=== PATIENT | female | born 1955 | race Caucasian/White ===

== ENCOUNTER 2019-04-20 07:41 | Day surgery (SDC) | payer OTHER, MEDICARE ==
[~2019-04-20 07:41] MED LIST: Glycopyrrolate 0.2 MG/ML SDV ONE; Lactated Ringers 1,000 ML IV SCH; Lidocaine 2% 5 ML SDV ONE; Midazolam 1 MG/ML 2 ML SDV ONE; Neostigmine Methylsulfate 1 MG/ML 5 ML Syringe ONE; Ondansetron 4 MG/2 ML SDV ONE; Propofol 200 MG/20 ML SDV ONE; Sodium Chloride 0.9% 10 ML SDV IV PRN; Sodium Chloride 0.9% 10 ML Syringe FLUSH PRN; Sodium Chloride 0.9% 2.5 ML Syringe FLUSH PRN; ceFAZolin 1 GM in Premix Bag 1 BAG IV ONE; fentaNYL 250 MCG/5 ML SDV ONE
[2019-04-20] MEDS ORDERED: Fluorescein 5 ML Vial ONE (07:42)
[2019-04-20] MEDS ORDERED: Scopolamine 1.5 MG Transdermal Patch TRDERM PRN (08:47)
--- NOTE | 2019-04-20 08:50 | PCM.PREANE ---
Preanesthetic Assessment - Anesthesia/Transfusion/Family Hx Anesthesia History: Prior Anesthesia Without Reaction Family History of Anesthesia Reaction: No Transfusion History: No Prior Transfusion(s) Intubation History: Unknown - Review of Systems General: No Symptoms Pulmonary: No Symptoms Cardiovascular: No Symptoms Gastrointestinal: No Symptoms Neurological: No Symptoms Other: Reports: None - Physical Assessment NPO Status Date: 04/20/19 NPO Status Time: 06:00 O2 Sat by Pulse Oximetry: 98 Respiratory Rate: 16 Vital Signs: Last Vital Signs Temp 36.2 C 04/20/19 07:59 Pulse 85 04/20/19 07:59 Resp 16 04/20/19 07:59 BP 129/57 L 04/20/19 07:59 Pulse Ox 98 04/20/19 07:59 Height: 5 ft 1 in Weight: 68.946 kg ASA Class: 2 Mental Status: Alert & Oriented x3 Airway Class: Mallampati = 2 Dentition: Reports: Normal Dentition Thyro-Mental Finger Breadths: 3 Mouth Opening Finger Breadths: 2 ROM/Head Extension: Full Lungs: Clear to Auscultation, Normal Respiratory Effort Cardiovascular: Regular Rate, Regular Rhythm - Lab Values: Laboratory Last Values WBC 3.85 K/uL (4.0-11.0) L 04/19/19 11:10 RBC 3.90 M/uL (4.30-5.90) L 04/19/19 11:10 Hgb 11.7 g/dL (12.0-16.0) L 04/19/19 11:10 Hct 35.7 % (36.0-46.0) L 04/19/19 11:10 MCV 91.5 fL (80.0-98.0) 04/19/19 11:10 MCH 30.0 pg (27.0-32.0) 04/19/19 11:10 MCHC 32.8 g/dL (31.0-37.0) 04/19/19 11:10 RDW Std Deviation 45.2 fl (28.0-62.0) 04/19/19 11:10 RDW Coeff of Estrada 14 % (11.0-15.0) 04/19/19 11:10 Plt Count 266 K/uL (150-400) 04/19/19 11:10 MPV 9.40 fL (7.40-12.00) 04/19/19 11:10 Nucleated RBC % 0.0 /100WBC 04/19/19 11:10 Nucleated RBCs # 0 K/uL 04/19/19 11:10 Sodium 142 mmol/L (136-145) 04/19/19 11:10 Potassium 3.9 mmol/L (3.5-5.1) 04/19/19 11:10 Chloride 104 mmol/L (98-107) 04/19/19 11:10 Carbon Dioxide 28.3 mmol/L (21.0-32.0) 04/19/19 11:10 BUN 21 mg/dL (7.0-18.0) H 04/19/19 11:10 Creatinine 1.7 mg/dL (0.6-1.0) H 04/19/19 11:10 Est Cr Clr Drug Dosing 24.90 mL/min 04/19/19 11:10 Estimated GFR (MDRD) 30.2 ml/min 04/19/19 11:10 Glucose 121 mg/dL (74-106) H 04/19/19 11:10 Calcium 9.2 mg/dL (8.5-10.1) 04/19/19 11:10 Blood Type O POSITIVE 04/19/19 11:10 Antibody Screen NEGATIVE 04/19/19 11:10 - Allergies Allergies/Adverse Reactions: Allergies Allergy/AdvReac Type Severity Reaction Status Date / Time erythromycin base Allergy Stomach Verified 04/17/19 07:45 Upset levofloxacin [From Levaquin] Allergy Stomach Verified 04/17/19 07:45 Upset Penicillins Allergy Hives Verified 04/17/19 07:45 Sulfa (Sulfonamide Allergy Stomach Verified 04/17/19 07:45 Antibiotics) Upset tetracycline Allergy Stomach Verified 04/17/19 07:45 Upset - Blood Blood Available: No - Anesthesia Plan Pre-Op Medication Ordered: None - Acknowledgements Anesthesia Type Planned: General Anesthesia Pt an Appropriate Candidate for the Planned Anesthesia: Yes Alternatives and Risks of Anesthesia Discussed w Pt/Guardian: Yes Pt/Guardian Understands and Agrees with Anesthesia Plan: Yes PreAnesthesia Questionnaire HEENT History: Reports: Allergic Rhinitis, Other (See Below) Other HEENT History: wears glasses Cardiovascular History: Reports: High Cholesterol, Hypertension Respiratory History: Reports: None Gastrointestinal History: Reports: GERD Genitourinary History: Reports: Other (See Below) Other Genitourinary History: stage III kidney failure due to taking fci lithium for bipolar DEVELOPMENT LEAD History: Reports: Musculoskeletal History: Reports: Arthritis, Gout Neurological History: Reports: None Psychiatric History: Reports: Bipolar, Depression Endocrine/Metabolic History: Reports: None Hematologic History: Reports: Anemia (mild) Immunologic History: Reports: None Oncologic (Cancer) History: Reports: None Dermatologic History: Reports: None - Past Surgical History Head Surgeries/Procedures: Reports: None HEENT Surgical History: Reports: None Cardiovascular Surgical History: Reports: None Respiratory Surgical History: Reports: None GI Surgical History: Reports: Colonoscopy Female Surgical History: Reports: Tubal Ligation Endocrine Surgical History: Reports: None Neurological Surgical History: Reports: None Musculoskeletal Surgical History: Reports: Carpal Tunnel, Shoulder Surgery Other Musculoskeletal Surgeries/Procedures:: left, shoulder manipulation, left shoulder replacement 11/07/18 Oncologic Surgical History: Reports: None Dermatological Surgical History: Reports: None - SUBSTANCE USE Smoking Status *Q: Never Smoker Recreational Drug Use History: No - HOME MEDS Home Medications: Home Meds Biotin 500 mcg PO DAILY 03/07/19 [History] Carboxymethylcellulose Sodium [Refresh Tears 0.5%] 2 drop EYEBOTH ASDIRECTED PRN 03/07/19 [History] Cholecalciferol (Vitamin D3) [Vitamin D3] 1,000 units PO DAILY 03/07/19 [History ] Cyanocobalamin (Vitamin B12) [Vitamin B12] 250 mg PO DAILY 03/07/19 [History] Divalproex Sodium 2 tab PO BEDTIME 03/07/19 [History] Fluticasone Propionate [Flonase Allergy Relief] 1 spray NASBOTH ASDIRECTED PRN 03/07/19 [History] Furosemide 40 mg PO BEDTIME 03/07/19 [History] Garlic 1,000 mg PO DAILY 03/07/19 [History] Krill/Grants-3/Dha/Epa/Lipids [Grants-3 Krill Oil 500 mg Sfgl] 2 tab PO DAILY [History] Levocetirizine Dihydrochloride [Xyzal] 5 mg PO BEDTIME 03/07/19 [History] Losartan [Cozaar] 50 mg PO DAILY 03/07/19 [History] Magnesium Oxide [Magnesium] 500 tab PO BID 03/07/19 [History] Multivit-Min/Iron/Folic/Lutein [Multivitamin Women 50 Plus Tab] 2 tab.chew CHEW DAILY 03/07/19 [History] Uric Acid 1 tab PO DAILY 03/07/19 [History] Vilazodone Hydrochloride [Viibryd] 0.5 tab PO DAILY 03/07/19 [History] Vitamin D With C 1 tab PO DAILY 03/07/19 [History] Vitamin E Mixed [Vitamin E] 400 units PO DAILY 03/07/19 [History] traZODone HCl [Trazodone HCl] 100 mg PO BEDTIME 03/07/19 [History] Loratadine 10 mg PO DAILY 04/17/19 [History] Oxybutynin 5 mg PO DAILY 04/17/19 [History] Ranitidine HCl 1 tab PO BID 04/17/19 [History] Lactobacillus Rhamnosus GG [Culturelle] 1 tab PO DAILY 04/19/19 [History] - CURRENT (IN HOUSE) MEDS Current Meds: Current Medications Cefazolin Sodium/Dextrose 1 gm (/ Premix) 50 mls @ 100 mls/hr IV ONETIME ONE Stop: 04/19/19 10:33 Lactated Ringer's (Ringers, Lactated) 1,000 mls @ 500 mls/hr IV BOLUS LUIS M Last Admin: 04/20/19 08:15 Dose: 500 mls/hr Scopolamine (Transderm-Scop) 1.5 mg TRDERM Q72H PRN PRN Reason: Nausea Sodium Chloride (Saline Flush) 10 ml FLUSH ASDIRECTED PRN PRN Reason: Keep Vein Open Sodium Chloride (Saline Flush) 2.5 ml FLUSH ASDIRECTED PRN PRN Reason: Keep Vein Open Sodium Chloride (Normal Saline) 10 ml IV ASDIRECTED PRN PRN Reason: IV Use Discontinued Medications Fentanyl (Sublimaze) Confirm Administered Dose 250 mcg .ROUTE .STK-MED ONE Stop: 04/20/19 06:52 Fluorescein Sodium (Ak-Fluor) Confirm Administered Dose 5 ml .ROUTE .STK-MED ONE Stop: 04/20/19 07:43 Glycopyrrolate (Robinul) Confirm Administered Dose 0.4 mg .ROUTE .STK-MED ONE Stop: 04/20/19 06:52 Lidocaine (Xylocaine-Mpf 2%) Confirm Administered Dose 5 ml .ROUTE .STK-MED ONE Stop: 04/20/19 06:52 Midazolam HCl (Versed 1 Mg/Ml) Confirm Administered Dose 2 mg .ROUTE .STK-MED ONE Stop: 04/20/19 06:52 Neostigmine Methylsulfate (Neostigmine) Confirm Administered Dose 5 mg .ROUTE .STK-MED ONE Stop: 04/20/19 06:52 Ondansetron HCl (Zofran) Confirm Administered Dose 4 mg .ROUTE .STK-MED ONE Stop: 04/20/19 06:52 Propofol (Diprivan 20 Ml) Confirm Administered Dose 200 mg .ROUTE .STK-MED ONE Stop: 04/20/19 06:52
[2019-04-20] MEDS ORDERED: Scopolamine 1.5 MG Transdermal Patch ONE (08:51)
[2019-04-20] MEDS ORDERED: Sodium Chloride 0.9% 20 ML ONE (09:17)
[2019-04-20] MEDS ORDERED: ceFAZolin 1 GM Vial ONE (09:17)
[2019-04-20] MEDS ORDERED: Phenylephrine/Normal Saline 100 MCG/ML 10 ML Syringe ONE (09:26)
[2019-04-20] MEDS ORDERED: Furosemide 40 MG/4 ML VIAL ONE (09:40)
[2019-04-20] MEDS ORDERED: Naloxone 0.4 MG/ML Syringe IVPUSH PRN (10:54)
[2019-04-20] MEDS ORDERED: EPINEPHrine 1:10,000 1 MG/10 ML Syringe IVPUSH PRN (10:54)
[2019-04-20] MEDS ORDERED: Albuterol 0.083% 2.5 MG/3 ML Neb Soln NEB PRN (10:54)
[2019-04-20] MEDS ORDERED: 50% Dextrose in Water 50 ML Syringe IVPUSH PRN (10:54)
[2019-04-20] MEDS ORDERED: Atropine 0.1 MG/ML 10 ML Syringe IVPUSH PRN ×2 (10:54)
[2019-04-20] MEDS ORDERED: ePHEDrine 50 MG/ML SDV ONE (11:01)
[2019-04-20] MEDS ORDERED: Metoprolol Tartrate 5 MG/5 ML SDV ONE (11:03)
[2019-04-20] MEDS ORDERED: Morphine 4 MG/ML Syringe IVPUSH PRN (11:19)
[2019-04-20] MEDS ORDERED: Acetaminophen/oxyCODONE 325-5 MG Tab PO PRN (11:19)
[2019-04-20] MEDS ORDERED: Promethazine 25 MG/ML SDV IM PRN (11:19)
[2019-04-20] MEDS ORDERED: Ketorolac 30 MG/ML SDV IVPUSH ONE (11:19)
[2019-04-20] MEDS ORDERED: Ondansetron 4 MG/2 ML SDV IVPUSH PRN (11:19)
--- NOTE | 2019-04-20 11:23 | PCM.OPNOTE ---
- General Post-Op/Procedure Note Date of Surgery/Procedure: 04/20/19 Operative Procedure(s): TVH,BSO, post repaier,Cysto Pre Op Diagnosis: Plevic relaxation Post-Op Diagnosis: Same Anesthesia Technique: General ET Tube Primary Surgeon: Raffaele Estevez EBL in mLs: 150 Complications: None Condition: Good Free Text/Narrative:: Intake & Output 04/19/19 04/20/19 04/20/19 22:59 06:59 14:59 Output Total 30 Balance -30
[2019-04-20] MEDS: fentaNYL 100 MCG/2 ML SDV IVPUSH PRN ×2 (11:36→11:51)
[2019-04-20] MEDS: Morphine 10 MG/ML Syringe IVPUSH PRN ×2 (14:34→19:47)
--- NOTE | 2019-04-20 15:29 | OR ---
SURGEON: Raffaele Estevez MD DATE OF PROCEDURE: 04/20/2019 PREOPERATIVE DIAGNOSIS: Pelvic relaxation, mainly rectocele and enterocele. POSTOPERATIVE DIAGNOSIS: Pelvic relaxation, mainly rectocele and enterocele. OPERATION PERFORMED: Total vaginal hysterectomy, vaginal bilateral salpingo-oophorectomy, and enterocele and rectocele repair utilizing the allograft. PRIMARY SURGEON: Raffaele Estevez MD. CLARITY DEVELOPER: OR Tech. ANESTHESIA: General endotracheal intubation. ANESTHESIOLOGIST: Stanley Ramirez. ESTIMATED BLOOD LOSS: 125 mL. COMPLICATIONS: None. FINDING: Pelvic relaxation, mainly rectocele and enterocele, and prolapse of the cervix and the uterus. INDICATION FOR SURGERY: [place] referred to the admit note. PROCEDURE IN DETAIL: The patient was brought to the OR, properly identified, and after adequate level of anesthesia, the patient was placed in lithotomy position, prepped and draped in sterile fashion as usual. Straight catheter was used to empty the bladder and short weighted speculum placed in the vagina. Using electrocautery, a circular incision around the vaginal mucosa was done and the posterior cul-de- sac was entered posteriorly. A short-weighted speculum was placed with extended long-weighted speculum, and then, the uterosacral ligament was identified from both sides, transected and suture ligated with 2-0 Vicryl pop-off. The same thing was done with the cardinal ligament. The cervical vesicle space was entered anteriorly and the bladder retracted completely from the operative field, and the peritoneal cavity was entered. The broad ligament was clamped with a curved Zeppelin, transected, and suture ligated with 2-0 Vicryl pop-off. The uterus delivered posteriorly, and the superior pedicle was taken with a 90- degree Zeppelin. The tubes and ovaries included with the specimen. The superior pedicle tied first with an Endoloop and then free tie on both sides. Inspection of the operative field shows no oozing, no bleeding. Vaginal cuff was closed with 3-0 Vicryl interrupted suture. Attention was next paid to the posterior vaginal wall and a copious amount of normal saline injected and posterior vaginal wall was opened from the vaginal vault to the introitus and dissected laterally. Then, a Mchenry retractor was placed, and then, the enterocele and rectocele was identified. With sharp and blunt dissection, the complete defect was identified and the surgeon could easily feel the sacral spinous ligament on both sides. I took the allograft and I could cut it to fit, and using Capio needle, I anchored the allograft to the sacrospinous ligament on both sides in the pelvis and anchored to the vaginal mucosa beneath the cervix. Once that is done, the excess graft was removed and with tying of the graft to the sacrospinous ligament, the defect was reduced and covered, and then, the vaginal cuff incision at the midline closed with 2-0 Vicryl continuous interlocking sutures. At this time, we asked Anesthesia people to give the patient 5 mL of fluorescein. Cystoscopy was performed. The bladder was intact. Both ureteric orifices seen with the dye coming from both of them, thus patency of both the ureter and the integrity of the bladder confirmed. Satisfied with these finding, vaginal pack was placed in the vagina and Campuzano catheter was placed in the bladder for drainage and the procedure ended. Instrument and sponge count was correct. The patient tolerated the procedure well, went to recovery room in stable, general condition. SOPHIA / ZULLY /[id number]
[2019-04-20] MEDS: Ketorolac 30 MG/ML SDV IVPUSH PRN (17:27)
[2019-04-20] MEDS: Docusate Sodium 100 MG Cap PO SCH (20:09)
[2019-04-21] MEDS: Acetaminophen/oxyCODONE 325-5 MG Tab PO PRN ×2 (03:08→07:03)
[2019-04-21] MEDS: Ketorolac 30 MG/ML SDV IVPUSH PRN (03:09)
--- NOTE | 2019-04-21 06:45 | PCM48HPAN ---
Post Anesthesia Note - EVALUATION WITHIN 48HRS OF ANESTHETIC Vital Signs in Normal Range: Yes Patient Participated in Evaluation: Yes Respiratory Function Stable: Yes Airway Patent: Yes Cardiovascular Function Stable: Yes Hydration Status Stable: Yes Pain Control Satisfactory: Yes Nausea and Vomiting Control Satisfactory: Yes Mental Status Recovered: Yes Resp Rate: 17 - COMMENTS/OBSERVATIONS Free Text/Narrative:: no anesthesia problems
[2019-04-21] MEDS: Docusate Sodium 100 MG Cap PO SCH (08:18)
--- NOTE | 2019-04-21 08:52 | PCM.SURGPN ---
- General Info Date of Service: 04/21/19 POD#: 1 Functional Status: Reports: Pain Controlled - Review of Systems General: Reports: No Symptoms HEENT: Reports: No Symptoms Pulmonary: Reports: No Symptoms Cardiovascular: Reports: No Symptoms Gastrointestinal: Reports: No Symptoms Genitourinary: Reports: No Symptoms Musculoskeletal: Reports: No Symptoms Skin: Reports: No Symptoms Neurological: Reports: No Symptoms Psychiatric: Reports: No Symptoms - Patient Data Vitals - Most Recent: Last Vital Signs Temp 37.3 C 04/21/19 07:40 Pulse 95 04/21/19 07:40 Resp 14 04/21/19 07:40 BP 117/85 04/21/19 07:40 Pulse Ox 93 L 04/21/19 07:40 Weight - Most Recent: 68.946 kg I&O - Last 24 Hours: Intake & Output 04/20/19 04/21/19 04/21/19 22:59 06:59 14:59 Output Total 200 100 Balance -200 -100 Lab Results Last 24 Hrs: Laboratory Results - last 24 hr 04/21/19 04/21/19 Range/Units 06:10 06:10 WBC 5.55 (4.0-11.0) K/uL RBC 3.29 L (4.30-5.90) M/uL Hgb 9.8 L (12.0-16.0) g/dL Hct 30.3 L (36.0-46.0) % MCV 92.1 (80.0-98.0) fL MCH 29.8 (27.0-32.0) pg MCHC 32.3 (31.0-37.0) g/dL RDW Std Deviation 45.5 (28.0-62.0) fl RDW Coeff of Estrada 14 (11.0-15.0) % Plt Count 239 (150-400) K/uL MPV 9.40 (7.40-12.00) fL Neut % (Auto) 73.8 (48.0-80.0) % Lymph % (Auto) 16.0 (16.0-40.0) % Miller % (Auto) 8.5 (0.0-15.0) % Eos % (Auto) 1.3 (0.0-7.0) % Baso % (Auto) 0.4 (0.0-1.5) % Neut # (Auto) 4.1 (1.4-5.7) K/uL Lymph # (Auto) 0.9 (0.6-2.4) K/uL Miller # (Auto) 0.5 (0.0-0.8) K/uL Eos # (Auto) 0.1 (0.0-0.7) K/uL Baso # (Auto) 0.0 (0.0-0.1) K/uL Nucleated RBC % 0.0 /100WBC Nucleated RBCs # 0 K/uL Sodium 141 (136-145) mmol/L Potassium 3.9 (3.5-5.1) mmol/L Chloride 104 (98-107) mmol/L Carbon Dioxide 29.1 (21.0-32.0) mmol/L BUN 21 H (7.0-18.0) mg/dL Creatinine 1.4 H (0.6-1.0) mg/dL Est Cr Clr Drug Dosing 30.23 mL/min Estimated GFR (MDRD) 37.7 ml/min Glucose 117 H (74-106) mg/dL Calcium 8.2 L (8.5-10.1) mg/dL Med Orders - Current: Current Medications Albuterol (Proventil Neb Soln) 2.5 mg NEB ONETIME PRN PRN Reason: Wheezing Atropine Sulfate (Atropine 0.1 Mg/Ml) 0.5 mg IVPUSH ASDIRECTED PRN PRN Reason: Hypo-perfusion Atropine Sulfate (Atropine 0.1 Mg/Ml) 1 mg IVPUSH ASDIRECTED PRN PRN Reason: Hypo-Perfusion Dextrose/Water (Dextrose 50% In Water) 50 ml IVPUSH ASDIRECTED PRN PRN Reason: Hypoglycemia Docusate Sodium (Colace) 100 mg PO BID [facility] Last Admin: 04/21/19 08:18 Dose: 100 mg Epinephrine HCl (Epinephrine 1:10,000) 1 mg IVPUSH ASDIRECTED PRN PRN Reason: ACLS Guidelines Fentanyl (Sublimaze) 50 - 100 mcg IVPUSH Q5M PRN PRN Reason: Pain Last Admin: 04/20/19 11:51 Dose: 50 mcg Lactated Ringer's (Ringers, Lactated) 1,000 mls @ 500 mls/hr IV BOLUS [facility] Last Admin: 04/20/19 08:15 Dose: 500 mls/hr Ketorolac Tromethamine (Toradol) 30 mg IVPUSH Q6H PRN PRN Reason: Pain (severe 7-10) Stop: 04/25/19 11:19 Last Admin: 04/21/19 03:09 Dose: 30 mg Morphine Sulfate (Morphine) 4 mg IVPUSH Q2H PRN PRN Reason: Pain (severe 7-10) Last Admin: 04/20/19 19:47 Dose: 4 mg Naloxone HCl (Narcan) 0.1 mg IVPUSH ASDIRECTED PRN PRN Reason: Respiratory Depression Ondansetron HCl (Zofran) 4 mg IVPUSH Q6H PRN PRN Reason: Nausea/Vomiting Oxycodone/Acetaminophen (Percocet 325-5 Mg) 1 tab PO Q4H PRN PRN Reason: Pain (moderate 4-6) Last Admin: 04/21/19 07:03 Dose: 1 tab Oxycodone/Acetaminophen (Percocet 325-5 Mg) 2 tab PO Q4H PRN PRN Reason: Pain (moderate 4-6) Promethazine HCl (Phenergan) 25 mg IM Q6H PRN PRN Reason: Nausea/Vomiting Scopolamine (Transderm-Scop) 1.5 mg TRDERM Q72H PRN PRN Reason: Nausea Last Admin: 04/20/19 08:54 Dose: 1.5 mg Sodium Chloride (Saline Flush) 10 ml FLUSH ASDIRECTED PRN PRN Reason: Keep Vein Open Sodium Chloride (Saline Flush) 2.5 ml FLUSH ASDIRECTED PRN PRN Reason: Keep Vein Open Sodium Chloride (Normal Saline) 10 ml IV ASDIRECTED PRN PRN Reason: IV Use Discontinued Medications Cefazolin Sodium (Ancef) Confirm Administered Dose 1 gm .ROUTE .STK-MED ONE Stop: 04/20/19 09:18 Ephedrine Sulfate (Ephedrine Sulfate) Confirm Administered Dose 50 mg .ROUTE .STK-MED ONE Stop: 04/20/19 11:02 Fentanyl (Sublimaze) Confirm Administered Dose 250 mcg .ROUTE .STK-MED ONE Stop: 04/20/19 06:52 Fluorescein Sodium (Ak-Fluor) Confirm Administered Dose 5 ml .ROUTE .STK-MED ONE Stop: 04/20/19 07:43 Furosemide (Lasix) Confirm Administered Dose 40 mg .ROUTE .STK-MED ONE Stop: 04/20/19 09:41 Glycopyrrolate (Robinul) Confirm Administered Dose 0.4 mg .ROUTE .STK-MED ONE Stop: 04/20/19 06:52 Sodium Chloride (Normal Saline) Confirm Administered Dose 20 mls @ as directed .ROUTE .STK-MED ONE Stop: 04/20/19 09:18 Ketorolac Tromethamine (Toradol) 30 mg IVPUSH ONETIME ONE Stop: 04/20/19 11:20 Last Admin: 04/20/19 11:44 Dose: 30 mg Lidocaine (Xylocaine-Mpf 2%) Confirm Administered Dose 5 ml .ROUTE .STK-MED ONE Stop: 04/20/19 06:52 Metoprolol Tartrate (Lopressor) Confirm Administered Dose 5 mg .ROUTE .STK-MED ONE Stop: 04/20/19 11:04 Midazolam HCl (Versed 1 Mg/Ml) Confirm Administered Dose 2 mg .ROUTE .STK-MED ONE Stop: 04/20/19 06:52 Morphine Sulfate (Morphine) 4 mg IVPUSH Q2H PRN PRN Reason: Pain (severe 7-10) Neostigmine Methylsulfate (Neostigmine) Confirm Administered Dose 5 mg .ROUTE .STK-MED ONE Stop: 04/20/19 06:52 Ondansetron HCl (Zofran) Confirm Administered Dose 4 mg .ROUTE .STK-MED ONE Stop: 04/20/19 06:52 Phenylephrine HCl (Phenylephrine In Ns 100 Mcg/Ml) Confirm Administered Dose 1 mg .ROUTE .STK-MED ONE Stop: 04/20/19 09:27 Propofol (Diprivan 20 Ml) Confirm Administered Dose 200 mg .ROUTE .STK-MED ONE Stop: 04/20/19 06:52 Scopolamine (Transderm-Scop) Confirm Administered Dose 1.5 mg .ROUTE .STK-MED ONE Stop: 04/20/19 08:52 Last Admin: 04/20/19 21:43 Dose: Not Given - Exam Wound/Incisions: Healing Well General: Alert, Oriented HEENT: Pupils Equal Neck: Supple Lungs: Clear to Auscultation, Normal Respiratory Effort Cardiovascular: Regular Rate, Regular Rhythm GI/Abdominal Exam: Normal Bowel Sounds, Soft, Non-Tender, No Organomegaly, No Distention, No Abnormal Bruit, No Mass, Pelvis Stable Extremities: Normal Inspection, Normal Range of Motion, Non-Tender, No Pedal Edema, Normal Capillary Refill Skin: Warm, Dry, Intact Neurological: No New Focal Deficit Psy/Mental Status: Alert, Normal Affect, Normal Mood - Problem List Review Problem List Initiated/Reviewed/Updated: Yes - My Orders Last 24 Hours: Active Orders 24 hr Category Date Time Status Patient Status [ADT] Routine ADT 04/20/19 11:19 Active Antiembolic Devices [RC] PER UNIT ROUTINE Care 04/20/19 11:19 Active Blood Glucose Check, Bedside [RC] PRN Care 04/20/19 10:54 Active Notify Provider Vital Signs [RC] ASDIRECTED Care 04/20/19 10:54 Active Notify Provider Vital Signs [RC] ASDIRECTED Care 04/20/19 11:19 Active Oxygen Therapy [RC] ASDIRECTED Care 04/20/19 11:19 Active Oxygen Therapy [RC] PRN Care 04/20/19 10:54 Active RT Aerosol Therapy [RC] ASDIRECTED Care 04/20/19 10:54 Active RT Aerosol Therapy [RC] ASDIRECTED Care 04/20/19 10:54 Active RT Aerosol Therapy [RC] ASDIRECTED Care 04/20/19 10:54 Active RT Incentive Spirometry [RC] Q2HWA Care 04/20/19 11:19 Active Up With Assistance [RC] PER UNIT ROUTINE Care 04/20/19 11:19 Active Up ad Fariha [RC] PER UNIT ROUTINE Care 04/20/19 11:19 Active Urinary Catheter Removal [RC] Per Unit Routine Care 04/20/19 11:19 Active Vital Signs [RC] PER UNIT ROUTINE Care 04/20/19 11:19 Active Regular Diet [DIET] Diet 04/20/19 Dinner Active Acetaminophen/oxyCODONE [Percocet 325-5 MG] Med 04/20/19 11:19 Active 1 tab PO Q4H PRN Acetaminophen/oxyCODONE [Percocet 325-5 MG] Med 04/20/19 11:19 Active 2 tab PO Q4H PRN Albuterol [Proventil Neb Soln] Med 04/20/19 10:54 Active 2.5 mg NEB ONETIME PRN Atropine [Atropine 0.1 MG/ML] Med 04/20/19 10:54 Active 0.5 mg IVPUSH ASDIRECTED PRN Atropine [Atropine 0.1 MG/ML] Med 04/20/19 10:54 Active 1 mg IVPUSH ASDIRECTED PRN Dextrose 50% in Water Med 04/20/19 10:54 Active 50 ml IVPUSH ASDIRECTED PRN Docusate Sodium [Colace] Med 04/20/19 21:00 Active 100 mg PO BID EPINEPHrine [EPINEPHrine 1:10,000] Med 04/20/19 10:54 Active 1 mg IVPUSH ASDIRECTED PRN Ketorolac [Toradol] Med 04/20/19 11:19 Active 30 mg IVPUSH Q6H PRN Morphine Med 04/20/19 14:15 Active 4 mg IVPUSH Q2H PRN Naloxone [Narcan] Med 04/20/19 10:54 Active 0.1 mg IVPUSH ASDIRECTED PRN Ondansetron [Zofran] Med 04/20/19 11:19 Active 4 mg IVPUSH Q6H PRN Promethazine [Phenergan] Med 04/20/19 11:19 Active 25 mg IM Q6H PRN Scopolamine [Transderm-Scop] Med 04/20/19 08:47 Active 1.5 mg TRDERM Q72H PRN fentaNYL [Sublimaze] Med 04/20/19 10:54 Active 50 - 100 mcg IVPUSH Q5M PRN Peripheral IV Discontinue [OM.PC] Routine Oth 04/20/19 11:19 Ordered Sequential Compression Device [OM.PC] Per Unit Routine Oth 04/20/19 11:19 Ordered Resuscitation Status Routine Resus Stat 04/20/19 11:19 Ordered Medication Orders Albuterol (Proventil Neb Soln) 2.5 mg NEB ONETIME PRN PRN Reason: Wheezing Atropine Sulfate (Atropine 0.1 Mg/Ml) 0.5 mg IVPUSH ASDIRECTED PRN PRN Reason: Hypo-perfusion Atropine Sulfate (Atropine 0.1 Mg/Ml) 1 mg IVPUSH ASDIRECTED PRN PRN Reason: Hypo-Perfusion Dextrose/Water (Dextrose 50% In Water) 50 ml IVPUSH ASDIRECTED PRN PRN Reason: Hypoglycemia Docusate Sodium (Colace) 100 mg PO BID [facility] M Last Admin: 04/21/19 08:18 Dose: 100 mg Admin: 04/20/19 20:09 Dose: 100 mg Epinephrine HCl (Epinephrine 1:10,000) 1 mg IVPUSH ASDIRECTED PRN PRN Reason: ACLS Guidelines Fentanyl (Sublimaze) 50 - 100 mcg IVPUSH Q5M PRN PRN Reason: Pain Last Admin: 04/20/19 11:51 Dose: 50 mcg Admin: 04/20/19 11:36 Dose: 50 mcg Lactated Ringer's (Ringers, Lactated) 1,000 mls @ 500 mls/hr IV BOLUS LUIS M Last Admin: 04/20/19 08:15 Dose: 500 mls/hr Ketorolac Tromethamine (Toradol) 30 mg IVPUSH Q6H PRN PRN Reason: Pain (severe 7-10) Stop: 04/25/19 11:19 Last Admin: 04/21/19 03:09 Dose: 30 mg Admin: 04/20/19 17:27 Dose: 30 mg Morphine Sulfate (Morphine) 4 mg IVPUSH Q2H PRN PRN Reason: Pain (severe 7-10) Last Admin: 04/20/19 19:47 Dose: 4 mg Admin: 04/20/19 14:34 Dose: 4 mg Naloxone HCl (Narcan) 0.1 mg IVPUSH ASDIRECTED PRN PRN Reason: Respiratory Depression Ondansetron HCl (Zofran) 4 mg IVPUSH Q6H PRN PRN Reason: Nausea/Vomiting Oxycodone/Acetaminophen (Percocet 325-5 Mg) 1 tab PO Q4H PRN PRN Reason: Pain (moderate 4-6) Last Admin: 04/21/19 07:03 Dose: 1 tab Admin: 04/21/19 03:08 Dose: 1 tab Oxycodone/Acetaminophen (Percocet 325-5 Mg) 2 tab PO Q4H PRN PRN Reason: Pain (moderate 4-6) Promethazine HCl (Phenergan) 25 mg IM Q6H PRN PRN Reason: Nausea/Vomiting Scopolamine (Transderm-Scop) 1.5 mg TRDERM Q72H PRN PRN Reason: Nausea Last Admin: 04/20/19 08:54 Dose: 1.5 mg Sodium Chloride (Saline Flush) 10 ml FLUSH ASDIRECTED PRN PRN Reason: Keep Vein Open Sodium Chloride (Saline Flush) 2.5 ml FLUSH ASDIRECTED PRN PRN Reason: Keep Vein Open Sodium Chloride (Normal Saline) 10 ml IV ASDIRECTED PRN PRN Reason: IV Use - Assessment Assessment (Free Text/Narrative):: Status post hysterectomy and posterior vaginal repair patient postoperative day doing well her lab work is normal Campuzano catheter removed and the patient is already voided the vaginal speculum removed she is not a bleeding she is on regular diet tolerated very well - Plan Plan (Free Text/Narrative):: We are planning to discharge this patient later today
--- NOTE | 2019-04-21 12:06 | PCM.DCSUM1 ---
Discharge Summary - Hospital Course Diagnosis: Stroke: No - Discharge Data Discharge Date: 04/21/19 Discharge Disposition: Home, Self-Care 01 Condition: Good - Patient Summary/Data Operative Procedure(s) Performed: TVH,BSO, post repaier,Cysto - Patient Instructions Activity: As Tolerated Driving: Do Not Drive Showering/Bathing: May Shower Wound/Incision Care: Keep Operative Site/Wound Site Clean and Dry Notify Provider of: Fever, Increased Pain - Discharge Plan Home Medications: Home Meds Biotin 500 mcg PO DAILY 03/07/19 [History] Carboxymethylcellulose Sodium [Refresh Tears 0.5%] 2 drop EYEBOTH ASDIRECTED PRN 03/07/19 [History] Cholecalciferol (Vitamin D3) [Vitamin D3] 1,000 units PO DAILY 03/07/19 [History ] Cyanocobalamin (Vitamin B12) [Vitamin B12] 250 mg PO DAILY 03/07/19 [History] Divalproex Sodium 2 tab PO BEDTIME 03/07/19 [History] Fluticasone Propionate [Flonase Allergy Relief] 1 spray NASBOTH ASDIRECTED PRN 03/07/19 [History] Furosemide 40 mg PO BEDTIME 03/07/19 [History] Garlic 1,000 mg PO DAILY 03/07/19 [History] Krill/[place]-3/Dha/Epa/Lipids [[place]-3 Krill Oil 500 mg Sfgl] 2 tab PO DAILY [History] Levocetirizine Dihydrochloride [Xyzal] 5 mg PO BEDTIME 03/07/19 [History] Losartan [Cozaar] 50 mg PO DAILY 03/07/19 [History] Magnesium Oxide [Magnesium] 500 tab PO BID 03/07/19 [History] Multivit-Min/Iron/Folic/Lutein [Multivitamin Women 50 Plus Tab] 2 tab.chew CHEW DAILY 03/07/19 [History] Uric Acid 1 tab PO DAILY 03/07/19 [History] Vilazodone Hydrochloride [Viibryd] 0.5 tab PO DAILY 03/07/19 [History] Vitamin D With C 1 tab PO DAILY 03/07/19 [History] Vitamin E Mixed [Vitamin E] 400 units PO DAILY 03/07/19 [History] traZODone HCl [Trazodone HCl] 100 mg PO BEDTIME 03/07/19 [History] Loratadine 10 mg PO DAILY 04/17/19 [History] Oxybutynin 5 mg PO DAILY 04/17/19 [History] Ranitidine HCl 1 tab PO BID 04/17/19 [History] Lactobacillus Rhamnosus GG [Culturelle] 1 tab PO DAILY 04/19/19 [History] Referrals: [facility] [Outside] Raffaele Estevez MD [Physician] - ( week- April 26@3:30pm w/ Dr. Estevez ) - Discharge Summary/Plan Comment DC Time >30 min.: Yes - General Info Date of Service: 04/21/19 Functional Status: Reports: Pain Controlled - Review of Systems General: Reports: No Symptoms HEENT: Reports: No Symptoms Pulmonary: Reports: No Symptoms Cardiovascular: Reports: No Symptoms Gastrointestinal: Reports: No Symptoms Genitourinary: Reports: No Symptoms Musculoskeletal: Reports: No Symptoms Skin: Reports: No Symptoms Neurological: Reports: No Symptoms Psychiatric: Reports: No Symptoms - Patient Data Vitals - Most Recent: Last Vital Signs Temp 37.3 C 04/21/19 07:40 Pulse 95 04/21/19 07:40 Resp 14 04/21/19 07:40 BP 117/85 04/21/19 07:40 Pulse Ox 93 L 04/21/19 07:40 Weight - Most Recent: 68.946 kg I&O - Last 24 hours: Intake & Output 04/20/19 04/21/19 04/21/19 22:59 06:59 14:59 Output Total 200 100 Balance -200 -100 Lab Results - Last 24 hrs: Laboratory Results - last 24 hr 04/21/19 04/21/19 Range/Units 06:10 06:10 WBC 5.55 (4.0-11.0) K/uL RBC 3.29 L (4.30-5.90) M/uL Hgb 9.8 L (12.0-16.0) g/dL Hct 30.3 L (36.0-46.0) % MCV 92.1 (80.0-98.0) fL MCH 29.8 (27.0-32.0) pg MCHC 32.3 (31.0-37.0) g/dL RDW Std Deviation 45.5 (28.0-62.0) fl RDW Coeff of Estrada 14 (11.0-15.0) % Plt Count 239 (150-400) K/uL MPV 9.40 (7.40-12.00) fL Neut % (Auto) 73.8 (48.0-80.0) % Lymph % (Auto) 16.0 (16.0-40.0) % [place] % (Auto) 8.5 (0.0-15.0) % Eos % (Auto) 1.3 (0.0-7.0) % Baso % (Auto) 0.4 (0.0-1.5) % Neut # (Auto) 4.1 (1.4-5.7) K/uL Lymph # (Auto) 0.9 (0.6-2.4) K/uL [place] # (Auto) 0.5 (0.0-0.8) K/uL Eos # (Auto) 0.1 (0.0-0.7) K/uL Baso # (Auto) 0.0 (0.0-0.1) K/uL Nucleated RBC % 0.0 /100WBC Nucleated RBCs # 0 K/uL Sodium 141 (136-145) mmol/L Potassium 3.9 (3.5-5.1) mmol/L Chloride 104 (98-107) mmol/L Carbon Dioxide 29.1 (21.0-32.0) mmol/L BUN 21 H (7.0-18.0) mg/dL Creatinine 1.4 H (0.6-1.0) mg/dL Est Cr Clr Drug Dosing 30.23 mL/min Estimated GFR (MDRD) 37.7 ml/min Glucose 117 H (74-106) mg/dL Calcium 8.2 L (8.5-10.1) mg/dL Med Orders - Current: Current Medications Albuterol (Proventil Neb Soln) 2.5 mg NEB ONETIME PRN PRN Reason: Wheezing Atropine Sulfate (Atropine 0.1 Mg/Ml) 0.5 mg IVPUSH ASDIRECTED PRN PRN Reason: Hypo-perfusion Atropine Sulfate (Atropine 0.1 Mg/Ml) 1 mg IVPUSH ASDIRECTED PRN PRN Reason: Hypo-Perfusion Dextrose/Water (Dextrose 50% In Water) 50 ml IVPUSH ASDIRECTED PRN PRN Reason: Hypoglycemia Docusate Sodium (Colace) 100 mg PO BID [facility] Last Admin: 04/21/19 08:18 Dose: 100 mg Epinephrine HCl (Epinephrine 1:10,000) 1 mg IVPUSH ASDIRECTED PRN PRN Reason: ACLS Guidelines Fentanyl (Sublimaze) 50 - 100 mcg IVPUSH Q5M PRN PRN Reason: Pain Last Admin: 04/20/19 11:51 Dose: 50 mcg Lactated Ringer's (Ringers, Lactated) 1,000 mls @ 500 mls/hr IV BOLUS [facility] Last Admin: 04/20/19 08:15 Dose: 500 mls/hr Ketorolac Tromethamine (Toradol) 30 mg IVPUSH Q6H PRN PRN Reason: Pain (severe 7-10) Stop: 04/25/19 11:19 Last Admin: 04/21/19 03:09 Dose: 30 mg Morphine Sulfate (Morphine) 4 mg IVPUSH Q2H PRN PRN Reason: Pain (severe 7-10) Last Admin: 04/20/19 19:47 Dose: 4 mg Naloxone HCl (Narcan) 0.1 mg IVPUSH ASDIRECTED PRN PRN Reason: Respiratory Depression Ondansetron HCl (Zofran) 4 mg IVPUSH Q6H PRN PRN Reason: Nausea/Vomiting Oxycodone/Acetaminophen (Percocet 325-5 Mg) 1 tab PO Q4H PRN PRN Reason: Pain (moderate 4-6) Last Admin: 04/21/19 07:03 Dose: 1 tab Oxycodone/Acetaminophen (Percocet 325-5 Mg) 2 tab PO Q4H PRN PRN Reason: Pain (moderate 4-6) Promethazine HCl (Phenergan) 25 mg IM Q6H PRN PRN Reason: Nausea/Vomiting Scopolamine (Transderm-Scop) 1.5 mg TRDERM Q72H PRN PRN Reason: Nausea Last Admin: 04/20/19 08:54 Dose: 1.5 mg Sodium Chloride (Saline Flush) 10 ml FLUSH ASDIRECTED PRN PRN Reason: Keep Vein Open Sodium Chloride (Saline Flush) 2.5 ml FLUSH ASDIRECTED PRN PRN Reason: Keep Vein Open Sodium Chloride (Normal Saline) 10 ml IV ASDIRECTED PRN PRN Reason: IV Use Discontinued Medications Cefazolin Sodium (Ancef) Confirm Administered Dose 1 gm .ROUTE .STK-MED ONE Stop: 04/20/19 09:18 Ephedrine Sulfate (Ephedrine Sulfate) Confirm Administered Dose 50 mg .ROUTE .STK-MED ONE Stop: 04/20/19 11:02 Fentanyl (Sublimaze) Confirm Administered Dose 250 mcg .ROUTE .STK-MED ONE Stop: 04/20/19 06:52 Fluorescein Sodium (Ak-Fluor) Confirm Administered Dose 5 ml .ROUTE .STK-MED ONE Stop: 04/20/19 07:43 Furosemide (Lasix) Confirm Administered Dose 40 mg .ROUTE .STK-MED ONE Stop: 04/20/19 09:41 Glycopyrrolate (Robinul) Confirm Administered Dose 0.4 mg .ROUTE .STK-MED ONE Stop: 04/20/19 06:52 Sodium Chloride (Normal Saline) Confirm Administered Dose 20 mls @ as directed .ROUTE .ST-MED ONE Stop: 04/20/19 09:18 Ketorolac Tromethamine (Toradol) 30 mg IVPUSH ONETIME ONE Stop: 04/20/19 11:20 Last Admin: 04/20/19 11:44 Dose: 30 mg Lidocaine (Xylocaine-Mpf 2%) Confirm Administered Dose 5 ml .ROUTE .STK-MED ONE Stop: 04/20/19 06:52 Metoprolol Tartrate (Lopressor) Confirm Administered Dose 5 mg .ROUTE .STK-MED ONE Stop: 04/20/19 11:04 Midazolam HCl (Versed 1 Mg/Ml) Confirm Administered Dose 2 mg .ROUTE .STK-MED ONE Stop: 04/20/19 06:52 Morphine Sulfate (Morphine) 4 mg IVPUSH Q2H PRN PRN Reason: Pain (severe 7-10) Neostigmine Methylsulfate (Neostigmine) Confirm Administered Dose 5 mg .ROUTE .STK-MED ONE Stop: 04/20/19 06:52 Ondansetron HCl (Zofran) Confirm Administered Dose 4 mg .ROUTE .STK-MED ONE Stop: 04/20/19 06:52 Phenylephrine HCl (Phenylephrine In Ns 100 Mcg/Ml) Confirm Administered Dose 1 mg .ROUTE .STK-MED ONE Stop: 04/20/19 09:27 Propofol (Diprivan 20 Ml) Confirm Administered Dose 200 mg .ROUTE .STK-MED ONE Stop: 04/20/19 06:52 Scopolamine (Transderm-Scop) Confirm Administered Dose 1.5 mg .ROUTE .STK-MED ONE Stop: 04/20/19 08:52 Last Admin: 04/20/19 21:43 Dose: Not Given - Exam General: Reports: Alert, Oriented HEENT: Reports: Pupils Equal, Pupils Reactive, EOMI, Mucous Membr. Moist/[place] Neck: Reports: Supple Lungs: Reports: Clear to Auscultation, Normal Respiratory Effort Cardiovascular: Reports: Regular Rate, Regular Rhythm GI/Abdominal Exam: Normal Bowel Sounds, Soft, Non-Tender, No Organomegaly, No Distention, No Abnormal Bruit, No Mass, Pelvis Stable (Female) Exam: Normal External Exam, Normal Speculum Exam, Normal Bimanual Exam Rectal (Female) Exam: Normal Exam, Normal Rectal Tone Back Exam: Reports: Normal Inspection, Full Range of Motion Extremities: Normal Inspection, Normal Range of Motion, Non-Tender, No Pedal Edema, Normal Capillary Refill Skin: Reports: Warm, Dry, Intact Wound/Incisions: Reports: Healing Well Neurological: Reports: No New Focal Deficit Psy/Mental Status: Reports: Alert, Normal Affect, Normal Mood
== END 2019-04-21 13:40 | disposition home or self-care (01) ==
LOC: MW.SDS 07:41 → MW.OB 08:45 → MW.SDS 04-21 13:40
PROVIDERS: ATTEND Obstetrics & Gynecology
DX: D25.1 Intramural leiomyoma of uterus (principal); D25.2 Subserosal leiomyoma of uterus; D25.0 Submucous leiomyoma of uterus; N84.0 Polyp of corpus uteri; N81.5 Vaginal enterocele; N81.6 Rectocele; E78.00 Pure hypercholesterolemia, unspecified; I12.9 Hypertensive chronic kidney disease with stage 1 through stage 4 chronic kidney disease, or unspecified chronic kidney disease; N18.3 Chronic kidney disease, stage 3 (moderate); F31.9 Bipolar disorder, unspecified; Z88.1 Allergy status to other antibiotic agents; Z88.0 Allergy status to penicillin; Z88.2 Allergy status to sulfonamides; Z79.899 Other long term (current) drug therapy
CPT/HCPCS: 36415; 57250; 58263; 80048; 85025; 85027; 86850; 86900; 86901; 88307; A9270; J0690; J1885; J1940; J2001; J2250; J2270; J2370; J2405; J2704; J3010; J3490; J7120; Q4116; 00944

== ENCOUNTER 2019-09-28 09:14 | Day surgery (SDC) | payer OTHER, MEDICARE ==
[2019-09-27 11:08] LABS: CARBON DIOXIDE,CO2 25.4 mmol/L (21.0-32.0)
[~2019-09-28 09:14] MED LIST changes: -Glycopyrrolate 0.2 MG/ML SDV ONE; -Lactated Ringers 1,000 ML IV SCH; -Lidocaine 2% 5 ML SDV ONE; -Midazolam 1 MG/ML 2 ML SDV ONE; -Neostigmine Methylsulfate 1 MG/ML 5 ML Syringe ONE; -Ondansetron 4 MG/2 ML SDV ONE; -Propofol 200 MG/20 ML SDV ONE; -ceFAZolin 1 GM in Premix Bag 1 BAG IV ONE; +ceFAZolin 2 GM in Premix Bag 1 BAG IV ONE; -fentaNYL 250 MCG/5 ML SDV ONE
[2019-09-28] MEDS ORDERED: Lactated Ringers 1,000 ML IV SCH (09:15)
[2019-09-28] MEDS ORDERED: Octyl 2-Cyanoacrylate 1 Tube ONE (09:38)
[2019-09-28] MEDS ORDERED: Propofol 200 MG/20 ML SDV ONE (09:40)
[2019-09-28] MEDS ORDERED: Lidocaine 2% 5 ML SDV ONE (09:40)
[2019-09-28] MEDS ORDERED: fentaNYL 100 MCG/2 ML SDV ONE (09:41)
[2019-09-28] MEDS ORDERED: Midazolam 1 MG/ML 2 ML SDV ONE (09:41)
--- NOTE | 2019-09-28 09:48 | PCM.PREANE ---
Preanesthetic Assessment - Anesthesia/Transfusion/Family Hx Anesthesia History: Prior Anesthesia Without Reaction Family History of Anesthesia Reaction: No Transfusion History: No Prior Transfusion(s) Intubation History: Unknown - Review of Systems General: No Symptoms Pulmonary: No Symptoms Cardiovascular: No Symptoms Gastrointestinal: No Symptoms Neurological: No Symptoms Other: Reports: None - Physical Assessment Height: 5 ft 1 in Weight: 68.946 kg ASA Class: 2 Mental Status: Alert & Oriented x3 Airway Class: Mallampati = 2 Dentition: Reports: Normal Dentition, [place](s) (multiple including 2 upper front ) Thyro-Mental Finger Breadths: 3 Mouth Opening Finger Breadths: 3 ROM/Head Extension: Full Lungs: Clear to Auscultation, Normal Respiratory Effort Cardiovascular: Regular Rate, Regular Rhythm - Lab Values: Laboratory Last Values WBC 3.14 K/uL (4.0-11.0) L 09/27/19 10:31 RBC 3.80 M/uL (4.30-5.90) L 09/27/19 10:31 Hgb 11.6 g/dL (12.0-16.0) L 09/27/19 10:31 Hct 34.4 % (36.0-46.0) L 09/27/19 10:31 MCV 90.5 fL (80.0-98.0) 09/27/19 10:31 MCH 30.5 pg (27.0-32.0) 09/27/19 10:31 MCHC 33.7 g/dL (31.0-37.0) 09/27/19 10:31 RDW Std Deviation 48.3 fl (28.0-62.0) 09/27/19 10:31 RDW Coeff of Estrada 15 % (11.0-15.0) 09/27/19 10:31 Plt Count 246 K/uL (150-400) 09/27/19 10:31 MPV 9.50 fL (7.40-12.00) 09/27/19 10:31 Nucleated RBC % 0.0 /100WBC 09/27/19 10:31 Nucleated RBCs # 0 K/uL 09/27/19 10:31 Sodium 138 mmol/L (136-145) 09/27/19 10:31 Potassium 4.0 mmol/L (3.5-5.1) 09/27/19 10:31 Chloride 102 mmol/L (98-107) 09/27/19 10:31 Carbon Dioxide 25.4 mmol/L (21.0-32.0) 09/27/19 10:31 BUN 24 mg/dL (7.0-18.0) H 09/27/19 10:31 Creatinine 1.7 mg/dL (0.6-1.0) H 09/27/19 10:31 Est Cr Clr Drug Dosing 24.56 mL/min 09/27/19 10:31 Estimated GFR (MDRD) 30.1 ml/min 09/27/19 10:31 Glucose 107 mg/dL (74-106) H 09/27/19 10:31 Calcium 9.1 mg/dL (8.5-10.1) 09/27/19 10:31 Blood Type O POSITIVE 09/27/19 10:31 Antibody Screen NEGATIVE 09/27/19 10:31 - Allergies Allergies/Adverse Reactions: Allergies Allergy/AdvReac Type Severity Reaction Status Date / Time Dairy Products Allergy Stomach Verified 09/25/19 12:09 Upset erythromycin base Allergy Stomach Verified 09/25/19 09:15 Upset levofloxacin [From Levaquin] Allergy Stomach Verified 09/25/19 09:15 Upset Penicillins Allergy Hives Verified 09/25/19 09:15 Sulfa (Sulfonamide Allergy Stomach Verified 09/25/19 09:15 Antibiotics) Upset tetracycline Allergy Stomach Verified 09/25/19 09:15 Upset - Blood Blood Available: No - Anesthesia Plan Pre-Op Medication Ordered: None - Acknowledgements Anesthesia Type Planned: General Anesthesia Pt an Appropriate Candidate for the Planned Anesthesia: Yes Alternatives and Risks of Anesthesia Discussed w Pt/Guardian: Yes Pt/Guardian Understands and Agrees with Anesthesia Plan: Yes PreAnesthesia Questionnaire HEENT History: Reports: Allergic Rhinitis, Other (See Below) Other HEENT History: wears glasses Cardiovascular History: Reports: High Cholesterol, Hypertension Respiratory History: Reports: None Gastrointestinal History: Reports: GERD Genitourinary History: Reports: Other (See Below) Other Genitourinary History: stage III kidney failure 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: , Other (See Below) (vaginal vault prolapse) Musculoskeletal History: Reports: Arthritis, Gout Other Musculoskeletal History: "possible fibromyalgia", Rt knee pain, Neurological History: Reports: None Psychiatric History: Reports: Bipolar, Depression Endocrine/Metabolic History: Reports: None Hematologic History: Reports: Anemia Immunologic History: Reports: None Oncologic (Cancer) History: Reports: None Dermatologic History: Reports: None - Past Surgical History Head Surgeries/Procedures: Reports: None HEENT Surgical History: Reports: None Cardiovascular Surgical History: Reports: None Respiratory Surgical History: Reports: None GI Surgical History: Reports: Colonoscopy Female Surgical History: Reports: Hysterectomy, Salpingo-Oophorectomy, Tubal Ligation Endocrine Surgical History: Reports: None Neurological Surgical History: Reports: None Musculoskeletal Surgical History: Reports: Carpal Tunnel, Shoulder Surgery Other Musculoskeletal Surgeries/Procedures:: left, shoulder manipulation, left shoulder replacement 11/07/18 Oncologic Surgical History: Reports: None Dermatological Surgical History: Reports: None - SUBSTANCE USE Smoking Status *Q: Never Smoker Recreational Drug Use History: No - HOME MEDS Home Medications: Home Meds Fluticasone Propionate [Flonase Allergy Relief] 1 spray NASBOTH ASDIRECTED PRN 03/07/19 [History] Furosemide 20 mg PO BEDTIME 03/07/19 [History] Levocetirizine Dihydrochloride [Xyzal] 5 mg PO BEDTIME 03/07/19 [History] traZODone HCl [Trazodone HCl] 100 mg PO BEDTIME 03/07/19 [History] Acetaminophen [Tylenol Extra Strength] 2 tab PO BID PRN 09/25/19 [History] Aspirin 2 tab PO DAILY 09/25/19 [History] Cholecalciferol (Vitamin D3) [Vitamin D3] 1 tab PO DAILY 09/25/19 [History] Cyanocobalamin (Vitamin B12) [Vitamin B12] 1 tab PO DAILY 09/25/19 [History] Garlic 1 tab PO DAILY 09/25/19 [History] Krill/Om-3/DHA/EPA/Phospho/Ast [Krill Oil 1,000 mg Softgel] 1 tab PO DAILY 09/25 [History] Lactobacillus Rhamnosus GG [Culturelle] 1 tab PO DAILY 09/25/19 [History] Losartan/Hydrochlorothiazide [Losartan-HCTZ 50-12.5 MG] 1 tab PO DAILY 09/25/19 [History] Magnesium Oxide [Magnesium] 500 mg PO BID 09/25/19 [History] Multivitamin [Multivitamins] 1 tab PO DAILY 09/25/19 [History] Neomycin/Polymyxin B Sulf/HC [Zxocojip-Oidk-NF Eye Drops] 4 drop EYEBOTH ASDIRECTED 09/25/19 [History] Ranitidine HCl 1 tab PO BID 09/25/19 [History] Valproic Acid [Depakene] 2 tab PO BEDTIME 09/25/19 [History] Vilazodone [Viibryd] 10 mg PO DAILY 09/25/19 [History] Vitamin E 1 tab PO DAILY 09/25/19 [History] - CURRENT (IN HOUSE) MEDS Current Meds: Current Medications Cefazolin Sodium/Dextrose 2 gm (/ Premix) 50 mls @ 100 mls/hr IV ONETIME ONE Stop: 09/27/19 10:09 Lactated Ringer's (Ringers, Lactated) 1,000 mls @ 100 mls/hr IV ASDIRECTED LUIS M Sodium Chloride (Saline Flush) 10 ml FLUSH ASDIRECTED PRN PRN Reason: Keep Vein Open Sodium Chloride (Saline Flush) 2.5 ml FLUSH ASDIRECTED PRN PRN Reason: Keep Vein Open Sodium Chloride (Normal Saline) 10 ml IV ASDIRECTED PRN PRN Reason: IV Use Discontinued Medications Fentanyl (Sublimaze) Confirm Administered Dose 100 mcg .ROUTE .STK-MED ONE Stop: 09/28/19 09:42 Lidocaine (Xylocaine-Mpf 2%) Confirm Administered Dose 5 ml .ROUTE .STK-MED ONE Stop: 09/28/19 09:41 Midazolam HCl (Versed 1 Mg/Ml) Confirm Administered Dose 2 mg .ROUTE .STK-MED ONE Stop: 09/28/19 09:42 Octyl Cyanoacrylate (Dermabond Advance) Confirm Administered Dose 1 applic .ROUTE .STK-MED ONE Stop: 09/28/19 09:39 Propofol (Diprivan 20 Ml) Confirm Administered Dose 200 mg .ROUTE .STK-MED ONE Stop: 09/28/19 09:41
[2019-09-28] MEDS ORDERED: Rocuronium 100 MG/10 ML Syringe ONE (10:05)
[2019-09-28] MEDS ORDERED: ceFAZolin/Dextrose,Iso-Osmotic 2 GM/50 ML Duplex Bag IV ONE (10:10)
[2019-09-28] MEDS ORDERED: ePHEDrine 50 MG/ML SDV ONE (10:58)
[2019-09-28] MEDS ORDERED: Ondansetron 4 MG/2 ML SDV ONE (11:06)
[2019-09-28] MEDS ORDERED: HYDROmorphone 2 MG/ML Syringe ONE (11:17)
[2019-09-28] MEDS ORDERED: Dexamethasone 4 MG/ML 5 ML MDV ONE (11:25)
[2019-09-28] MEDS ORDERED: Metoclopramide 10 MG/2 ML SDV ONE (11:25)
[2019-09-28] MEDS ORDERED: Meperidine PF 25 MG/ML Syringe IV PRN (11:41)
[2019-09-28] MEDS ORDERED: fentaNYL 100 MCG/2 ML SDV IVPUSH PRN (11:42)
[2019-09-28] MEDS ORDERED: Promethazine 25 MG/ML SDV IM PRN ×2 (11:42→13:13)
[2019-09-28] MEDS ORDERED: Neostigmine Methylsulfate 1 MG/ML 5 ML Syringe ONE (12:17)
[2019-09-28] MEDS ORDERED: Glycopyrrolate 0.2 MG/ML SDV ONE (12:17)
[2019-09-28] MEDS ORDERED: Ketorolac 30 MG/ML SDV ONE (12:49)
[2019-09-28] MEDS ORDERED: Ondansetron 4 MG/2 ML SDV IVPUSH PRN (13:13)
[2019-09-28] MEDS ORDERED: Ketorolac 30 MG/ML SDV IVPUSH PRN (13:13)
[2019-09-28] MEDS ORDERED: Morphine 4 MG/ML Syringe IVPUSH PRN (13:13)
[2019-09-28] MEDS ORDERED: Ketorolac 30 MG/ML SDV IVPUSH ONE (13:13)
[2019-09-28] MEDS ORDERED: Acetaminophen/oxyCODONE 325-5 MG Tab PO PRN (13:13)
--- NOTE | 2019-09-28 13:21 | PCM.OPNOTE ---
- General Post-Op/Procedure Note Date of Surgery/Procedure: 09/28/19 Operative Procedure(s): Vaginal Vault suspension. Pre Op Diagnosis: Oelvic relaxation. Post-Op Diagnosis: Same Anesthesia Technique: General ET Tube Primary Surgeon: Raffaele Estevez EBL in mLs: 100 Complications: None Condition: Good
--- NOTE | 2019-09-28 13:57 | PCM.POSTAN ---
POST ANESTHESIA ASSESSMENT - MENTAL STATUS Mental Status: Alert, Oriented - VITAL SIGNS Vital Signs: Last Vital Signs Temp 36.6 C 09/28/19 13:25 Pulse 83 09/28/19 13:55 Resp 12 09/28/19 13:55 BP 110/50 L 09/28/19 13:55 Pulse Ox 95 09/28/19 13:55 - RESPIRATORY Respiratory Status: Respiratory Rate WNL, Airway Patent, O2 Saturation Stable - CARDIOVASCULAR CV Status: Pulse Rate WNL, Blood Pressure Stable - GASTROINTESTINAL GI Status: No Symptoms - PAIN Pain Score: 3 (resting quietly in between assessments) - POST OP HYDRATION Hydration Status: Adequate & Stable
[2019-09-28] MEDS: Acetaminophen/oxyCODONE 325-5 MG Tab PO PRN (16:49)
[2019-09-28] MEDS ORDERED: Furosemide 40 MG Tab PO SCH (21:00)
[2019-09-28] MEDS ORDERED: VALPROIC ACID PO SCH (21:00)
[2019-09-28] MEDS ORDERED: traZODone 50 MG Tab PO SCH (21:05)
[2019-09-28] MEDS ORDERED: Divalproex Sodium Delayed-Release 500 MG Tab.CR PO ONE (21:15)
[2019-09-28] MEDS: Famotidine 20 MG Tab PO SCH (21:18)
[2019-09-29] MEDS: Acetaminophen/oxyCODONE 325-5 MG Tab PO PRN ×3 (03:53→16:15)
[2019-09-29 06:04] LABS: POTASSIUM,K 4.1 mmol/L (3.5-5.1)
[2019-09-29] MEDS ORDERED: Hydrochlorothiazide/Losartan 12.5-50 mg Tab PO SCH (09:15)
[2019-09-29] MEDS ORDERED: Furosemide 20 MG Tab PO SCH (09:15)
[2019-09-29] MEDS: Famotidine 20 MG Tab PO SCH (09:33)
--- NOTE | 2019-09-29 12:05 | PCM48HPAN ---
Post Anesthesia Note - EVALUATION WITHIN 48HRS OF ANESTHETIC Vital Signs in Normal Range: Yes Patient Participated in Evaluation: Yes Respiratory Function Stable: Yes Airway Patent: Yes Cardiovascular Function Stable: Yes Hydration Status Stable: Yes Pain Control Satisfactory: Yes Nausea and Vomiting Control Satisfactory: Yes Mental Status Recovered: Yes Vital Signs: Last Vital Signs Temp 96.8 F 09/29/19 07:37 Pulse 73 09/29/19 07:37 Resp 18 09/29/19 07:37 BP 104/55 L 09/29/19 07:37 Pulse Ox 100 09/29/19 07:37
--- NOTE | 2019-09-29 13:12 | PCM.SURGPN ---
- General Info Date of Service: 09/29/19 POD#: 1 Functional Status: Reports: Pain Controlled - Review of Systems General: Reports: No Symptoms HEENT: Reports: No Symptoms Pulmonary: Reports: No Symptoms Cardiovascular: Reports: No Symptoms Gastrointestinal: Reports: No Symptoms Genitourinary: Reports: No Symptoms Musculoskeletal: Reports: No Symptoms Skin: Reports: No Symptoms Neurological: Reports: No Symptoms Psychiatric: Reports: No Symptoms - Patient Data Vitals - Most Recent: Last Vital Signs Temp 36.0 C 09/29/19 07:37 Pulse 73 09/29/19 07:37 Resp 18 09/29/19 07:37 BP 104/55 L 09/29/19 07:37 Pulse Ox 100 09/29/19 07:37 Weight - Most Recent: 68.946 kg I&O - Last 24 Hours: Intake & Output 09/28/19 09/29/19 09/29/19 22:59 06:59 14:59 Intake Total 600 Output Total 600 Balance 0 Lab Results Last 24 Hrs: Laboratory Results - last 24 hr 09/29/19 09/29/19 Range/Units 05:35 05:35 WBC 7.17 (4.0-11.0) K/uL RBC 3.35 L (4.30-5.90) M/uL Hgb 10.3 L (12.0-16.0) g/dL Hct 31.7 L (36.0-46.0) % MCV 94.6 (80.0-98.0) fL MCH 30.7 (27.0-32.0) pg MCHC 32.5 (31.0-37.0) g/dL RDW Std Deviation 49.6 (28.0-62.0) fl RDW Coeff of Estrada 14 (11.0-15.0) % Plt Count 189 (150-400) K/uL MPV 9.90 (7.40-12.00) fL Neut % (Auto) 79.5 (48.0-80.0) % Lymph % (Auto) 11.7 L (16.0-40.0) % [place] % (Auto) 8.4 (0.0-15.0) % Eos % (Auto) 0.3 (0.0-7.0) % Baso % (Auto) 0.1 (0.0-1.5) % Neut # (Auto) 5.7 (1.4-5.7) K/uL Lymph # (Auto) 0.8 (0.6-2.4) K/uL [place] # (Auto) 0.6 (0.0-0.8) K/uL Eos # (Auto) 0.0 (0.0-0.7) K/uL Baso # (Auto) 0.0 (0.0-0.1) K/uL Nucleated RBC % 0.0 /100WBC Nucleated RBCs # 0 K/uL Sodium 138 (136-145) mmol/L Potassium 4.1 (3.5-5.1) mmol/L Chloride 104 (98-107) mmol/L Carbon Dioxide 24.0 (21.0-32.0) mmol/L BUN 25 H (7.0-18.0) mg/dL Creatinine 1.6 H (0.6-1.0) mg/dL Est Cr Clr Drug Dosing 26.10 mL/min Estimated GFR (MDRD) 32.2 ml/min Glucose 122 H (74-106) mg/dL Calcium 8.5 (8.5-10.1) mg/dL Med Orders - Current: Current Medications Famotidine (Pepcid) 20 mg PO BID [facility] Last Admin: 09/29/19 09:33 Dose: 20 mg Furosemide (Lasix) 40 mg PO BEDTIME [facility] Last Admin: 09/28/19 21:17 Dose: 40 mg Furosemide (Lasix) 10 mg PO DAILY [facility] Last Admin: 09/29/19 09:32 Dose: 10 mg HCTZ/Losartan Potassium (Hyzaar 50-12.5 Mg) 1 tab PO DAILY [facility] Last Admin: 09/29/19 09:33 Dose: 1 tab Ketorolac Tromethamine (Toradol) 30 mg IVPUSH Q6H PRN PRN Reason: Pain (severe 7-10) Stop: 10/03/19 13:13 Morphine Sulfate (Morphine) 4 mg IVPUSH Q2H PRN PRN Reason: Pain (severe 7-10) Ondansetron HCl (Zofran) 4 mg IVPUSH Q6H PRN PRN Reason: Nausea/Vomiting Oxycodone/Acetaminophen (Percocet 325-5 Mg) 1 tab PO Q4H PRN PRN Reason: Pain (moderate 4-6) Last Admin: 09/29/19 11:35 Dose: 1 tab Oxycodone/Acetaminophen (Percocet 325-5 Mg) 2 tab PO Q4H PRN PRN Reason: Pain (moderate 4-6) Levocetirizine Dihydrochloride [ Xyzal] 5 Mg 1 each PO BEDTIME [facility]IS M Promethazine HCl (Phenergan) 12.5 mg IM ONETIME PRN PRN Reason: Nausea Promethazine HCl (Phenergan) 25 mg IM Q6H PRN PRN Reason: Nausea/Vomiting Sodium Chloride (Saline Flush) 10 ml FLUSH ASDIRECTED PRN PRN Reason: Keep Vein Open Sodium Chloride (Saline Flush) 2.5 ml FLUSH ASDIRECTED PRN PRN Reason: Keep Vein Open Sodium Chloride (Normal Saline) 10 ml IV ASDIRECTED PRN PRN Reason: IV Use Trazodone HCl (Trazodone) 100 mg PO BEDTIME [facility] M Last Admin: 09/28/19 21:59 Dose: 100 mg Discontinued Medications Cefazolin Sodium/Dextrose (Ancef) Confirm Administered Dose 2 gm IV .STK-MED ONE Stop: 09/28/19 10:11 Dexamethasone (Dexamethasone) Confirm Administered Dose 20 mg .ROUTE .STK-MED ONE Stop: 09/28/19 11:26 Divalproex Sodium (Depakote) 500 mg PO ONETIME ONE Stop: 09/28/19 21:16 Last Admin: 09/28/19 21:18 Dose: 500 mg Ephedrine Sulfate (Ephedrine Sulfate) Confirm Administered Dose 50 mg .ROUTE .STK-MED ONE Stop: 09/28/19 10:59 Fentanyl (Sublimaze) Confirm Administered Dose 100 mcg .ROUTE .STK-MED ONE Stop: 09/28/19 09:42 Fentanyl (Sublimaze) 50 - 100 mcg IVPUSH Q5M PRN PRN Reason: Pain Stop: 09/28/19 13:42 Glycopyrrolate (Robinul) Confirm Administered Dose 0.4 mg .ROUTE .STK-MED ONE Stop: 09/28/19 12:18 Hydromorphone HCl (Dilaudid) Confirm Administered Dose 2 mg .ROUTE .STK-MED ONE Stop: 09/28/19 11:18 Cefazolin Sodium/Dextrose 2 gm (/ Premix) 50 mls @ 100 mls/hr IV ONETIME ONE Stop: 09/27/19 10:09 Lactated Ringer's (Ringers, Lactated) 1,000 mls @ 100 mls/hr IV ASDIRECTED [facility] Last Admin: 09/28/19 10:20 Dose: 100 mls/hr Ketorolac Tromethamine (Toradol) Confirm Administered Dose 30 mg .ROUTE .STK- MED ONE Stop: 09/28/19 12:50 Ketorolac Tromethamine (Toradol) 30 mg IVPUSH ONETIME ONE Stop: 09/28/19 13:14 Last Admin: 09/28/19 19:52 Dose: Not Given Lidocaine (Xylocaine-Mpf 2%) Confirm Administered Dose 5 ml .ROUTE .STK-MED ONE Stop: 09/28/19 09:41 Meperidine HCl (Demerol) 12.5 - 25 mg IV ONETIME PRN PRN Reason: Shivering Stop: 09/28/19 13:42 Last Admin: 09/28/19 13:39 Dose: 25 mg Metoclopramide HCl (Reglan) Confirm Administered Dose 10 mg .ROUTE .STK-MED ONE Stop: 09/28/19 11:26 Midazolam HCl (Versed 1 Mg/Ml) Confirm Administered Dose 2 mg .ROUTE .STK-MED ONE Stop: 09/28/19 09:42 Neostigmine Methylsulfate (Neostigmine) Confirm Administered Dose 5 mg .ROUTE .STK-MED ONE Stop: 09/28/19 12:18 Non-Formulary Medication (Valproic Acid) 2 tab PO BEDTIME [facility] Octyl Cyanoacrylate (Dermabond Advance) Confirm Administered Dose 1 applic .ROUTE .STK-MED ONE Stop: 09/28/19 09:39 Ondansetron HCl (Zofran) Confirm Administered Dose 8 mg .ROUTE .STK-MED ONE Stop: 09/28/19 11:07 Propofol (Diprivan 20 Ml) Confirm Administered Dose 200 mg .ROUTE .STK-MED ONE Stop: 09/28/19 09:41 Rocuronium [place] (Zemuron) Confirm Administered Dose 100 mg .ROUTE .STK-MED ONE Stop: 09/28/19 10:06 Trazodone HCl (Trazodone Hcl) 100 mg PO BEDTIME [facility] Last Admin: 09/28/19 22:00 Dose: Not Given - Exam Wound/Incisions: Healing Well General: Alert, Oriented HEENT: Pupils Equal Neck: Supple Lungs: Clear to Auscultation, Normal Respiratory Effort Cardiovascular: Regular Rate, Regular Rhythm GI/Abdominal Exam: Normal Bowel Sounds, Soft, Non-Tender, No Organomegaly, No Distention, No Abnormal Bruit, No Mass, Pelvis Stable Extremities: Normal Inspection, Normal Range of Motion, Non-Tender, No Pedal Edema, Normal Capillary Refill Skin: Warm, Dry, Intact Neurological: No New Focal Deficit Psy/Mental Status: Alert, Normal Affect, Normal Mood Sepsis Event Note - Evaluation Sepsis Screening Result: No Definite Risk - Focused Exam Vital Signs: Vital Signs Temp Pulse Resp BP Pulse Ox 09/29/19 07:37 36.0 C 73 18 104/55 L 100 09/29/19 04:05 36.1 C 86 18 125/58 L 100 Date Exam was Performed: 09/29/19 Time Exam was Performed: 13:11 - Problem List Review Problem List Initiated/Reviewed/Updated: Yes - My Orders Last 24 Hours: Active Orders 24 hr Category Date Time Status Patient Status [ADT] Routine ADT 09/28/19 13:13 Active Antiembolic Devices [RC] PER UNIT ROUTINE Care 09/28/19 13:14 Active Communication Order [RC] ROUTINE Care 09/28/19 20:15 Active Notify Provider Vital Signs [RC] ASDIRECTED Care 09/28/19 13:13 Active Oxygen Therapy [RC] ASDIRECTED Care 09/28/19 13:13 Active RT Incentive Spirometry [RC] Q2HWA Care 09/28/19 13:13 Active Up With Assistance [RC] PER UNIT ROUTINE Care 09/28/19 13:13 Active Up ad Fariha [RC] PER UNIT ROUTINE Care 09/28/19 13:13 Active Vital Signs [RC] PER UNIT ROUTINE Care 09/28/19 13:13 Active Regular Diet [DIET] Diet 09/28/19 Dinner Active Acetaminophen/oxyCODONE [Percocet 325-5 MG] Med 09/28/19 13:13 Active 1 tab PO Q4H PRN Acetaminophen/oxyCODONE [Percocet 325-5 MG] Med 09/28/19 13:13 Active 2 tab PO Q4H PRN Famotidine [Pepcid] Med 09/28/19 21:00 Active 20 mg PO BID Furosemide [Lasix] Med 09/29/19 09:15 Active 10 mg PO DAILY Furosemide [Lasix] Med 09/28/19 21:00 Active 40 mg PO BEDTIME Hydrochlorothiazide/Losartan [Hyzaar 50-12.5 MG] Med 09/29/19 09:15 Active 1 tab PO DAILY Ketorolac [Toradol] Med 09/28/19 13:13 Active 30 mg IVPUSH Q6H PRN Morphine Med 09/28/19 13:13 Active 4 mg IVPUSH Q2H PRN Ondansetron [Zofran] Med 09/28/19 13:13 Active 4 mg IVPUSH Q6H PRN Patient's Own Medication [Ptom] Med 09/28/19 21:00 Active 1 each PO BEDTIME Promethazine [Phenergan] Med 09/28/19 13:13 Active 25 mg IM Q6H PRN traZODone Med 09/28/19 21:05 Active 100 mg PO BEDTIME Peripheral IV Discontinue [OM.PC] Routine Oth 09/28/19 13:13 Ordered Sequential Compression Device [OM.PC] Per Unit Routine Oth 09/28/19 13:13 Ordered Resuscitation Status Routine Resus Stat 09/28/19 13:13 Ordered Medication Orders Famotidine (Pepcid) 20 mg PO BID [facility] Last Admin: 09/29/19 09:33 Dose: 20 mg Admin: 09/28/19 21:18 Dose: 20 mg Furosemide (Lasix) 40 mg PO BEDTIME [facility] Last Admin: 09/28/19 21:17 Dose: 40 mg Furosemide (Lasix) 10 mg PO DAILY [facility] Last Admin: 09/29/19 09:32 Dose: 10 mg HCTZ/Losartan Potassium (Hyzaar 50-12.5 Mg) 1 tab PO DAILY [facility] Last Admin: 09/29/19 09:33 Dose: 1 tab Ketorolac Tromethamine (Toradol) 30 mg IVPUSH Q6H PRN PRN Reason: Pain (severe 7-10) Stop: 10/03/19 13:13 Morphine Sulfate (Morphine) 4 mg IVPUSH Q2H PRN PRN Reason: Pain (severe 7-10) Ondansetron HCl (Zofran) 4 mg IVPUSH Q6H PRN PRN Reason: Nausea/Vomiting Oxycodone/Acetaminophen (Percocet 325-5 Mg) 1 tab PO Q4H PRN PRN Reason: Pain (moderate 4-6) Last Admin: 09/29/19 11:35 Dose: 1 tab Admin: 09/29/19 03:53 Dose: 1 tab Admin: 09/28/19 16:49 Dose: 1 tab Oxycodone/Acetaminophen (Percocet 325-5 Mg) 2 tab PO Q4H PRN PRN Reason: Pain (moderate 4-6) Levocetirizine Dihydrochloride [ Xyzal] 5 Mg 1 each PO BEDTIME [facility]IS M Promethazine HCl (Phenergan) 12.5 mg IM ONETIME PRN PRN Reason: Nausea Promethazine HCl (Phenergan) 25 mg IM Q6H PRN PRN Reason: Nausea/Vomiting Sodium Chloride (Saline Flush) 10 ml FLUSH ASDIRECTED PRN PRN Reason: Keep Vein Open Sodium Chloride (Saline Flush) 2.5 ml FLUSH ASDIRECTED PRN PRN Reason: Keep Vein Open Sodium Chloride (Normal Saline) 10 ml IV ASDIRECTED PRN PRN Reason: IV Use Trazodone HCl (Trazodone) 100 mg PO BEDTIME [facility] M Last Admin: 09/28/19 21:59 Dose: 100 mg - Assessment Assessment (Free Text/Narrative):: doing well
--- NOTE | 2019-09-29 13:13 | PCM.DCSUM1 ---
Discharge Summary - Hospital Course Diagnosis: Stroke: No - Discharge Data Discharge Date: 09/29/19 Discharge Disposition: Home, Self-Care 01 Condition: Good - Referral to Home Health Primary Care Physician: Abby Reinoso NP - Patient Summary/Data Operative Procedure(s) Performed: Vaginal Vault suspension. - Patient Instructions Diet: Usual Diet as Tolerated Activity: As Tolerated Driving: Do Not Drive Showering/Bathing: May Shower - Discharge Plan Home Medications: Home Meds Fluticasone Propionate [Flonase Allergy Relief] 1 spray NASBOTH ASDIRECTED PRN 03/07/19 [History] Furosemide 20 mg PO BEDTIME 03/07/19 [History] Levocetirizine Dihydrochloride [Xyzal] 5 mg PO BEDTIME 03/07/19 [History] traZODone HCl [Trazodone HCl] 100 mg PO BEDTIME 03/07/19 [History] Acetaminophen [Tylenol Extra Strength] 2 tab PO BID PRN 09/25/19 [History] Aspirin 2 tab PO DAILY 09/25/19 [History] Cholecalciferol (Vitamin D3) [Vitamin D3] 1 tab PO DAILY 09/25/19 [History] Cyanocobalamin (Vitamin B12) [Vitamin B12] 1 tab PO DAILY 09/25/19 [History] Garlic 1 tab PO DAILY 09/25/19 [History] Krill/Om-3/DHA/EPA/Phospho/Ast [Krill Oil 1,000 mg Softgel] 1 tab PO DAILY 09/25 [History] Lactobacillus Rhamnosus GG [Culturelle] 1 tab PO DAILY 09/25/19 [History] Losartan/Hydrochlorothiazide [Losartan-HCTZ 50-12.5 MG] 1 tab PO DAILY 09/25/19 [History] Magnesium Oxide [Magnesium] 500 mg PO BID 09/25/19 [History] Multivitamin [Multivitamins] 1 tab PO DAILY 09/25/19 [History] Neomycin/Polymyxin B Sulf/HC [Ygueuxgz-Luih-BM Eye Drops] 4 drop EYEBOTH ASDIRECTED 09/25/19 [History] Ranitidine HCl 1 tab PO BID 09/25/19 [History] Valproic Acid [Depakene] 2 tab PO BEDTIME 09/25/19 [History] Vilazodone [Viibryd] 10 mg PO DAILY 09/25/19 [History] Vitamin E 1 tab PO DAILY 09/25/19 [History] Furosemide 10 mg PO DAILY 09/29/19 [History] Patient Handouts: Acetaminophen; Hydrocodone tablets or capsules, Urethral Vaginal Sling, Care After Referrals: Raffaele Estevez MD [Physician] - 10/09/19 1:30 pm - Discharge Summary/Plan Comment DC Time >30 min.: Yes - General Info Date of Service: 09/29/19 Functional Status: Reports: Pain Controlled - Review of Systems General: Reports: No Symptoms HEENT: Reports: No Symptoms Pulmonary: Reports: No Symptoms Cardiovascular: Reports: No Symptoms Gastrointestinal: Reports: No Symptoms Genitourinary: Reports: No Symptoms Musculoskeletal: Reports: No Symptoms Skin: Reports: No Symptoms Neurological: Reports: No Symptoms Psychiatric: Reports: No Symptoms - Patient Data Vitals - Most Recent: Last Vital Signs Temp 36.0 C 09/29/19 07:37 Pulse 73 09/29/19 07:37 Resp 18 09/29/19 07:37 BP 104/55 L 09/29/19 07:37 Pulse Ox 100 09/29/19 07:37 Weight - Most Recent: 68.946 kg I&O - Last 24 hours: Intake & Output 09/28/19 09/29/19 09/29/19 22:59 06:59 14:59 Intake Total 600 Output Total 600 Balance 0 Lab Results - Last 24 hrs: Laboratory Results - last 24 hr 09/29/19 09/29/19 Range/Units 05:35 05:35 WBC 7.17 (4.0-11.0) K/uL RBC 3.35 L (4.30-5.90) M/uL Hgb 10.3 L (12.0-16.0) g/dL Hct 31.7 L (36.0-46.0) % MCV 94.6 (80.0-98.0) fL MCH 30.7 (27.0-32.0) pg MCHC 32.5 (31.0-37.0) g/dL RDW Std Deviation 49.6 (28.0-62.0) fl RDW Coeff of Estrada 14 (11.0-15.0) % Plt Count 189 (150-400) K/uL MPV 9.90 (7.40-12.00) fL Neut % (Auto) 79.5 (48.0-80.0) % Lymph % (Auto) 11.7 L (16.0-40.0) % [place] % (Auto) 8.4 (0.0-15.0) % Eos % (Auto) 0.3 (0.0-7.0) % Baso % (Auto) 0.1 (0.0-1.5) % Neut # (Auto) 5.7 (1.4-5.7) K/uL Lymph # (Auto) 0.8 (0.6-2.4) K/uL [place] # (Auto) 0.6 (0.0-0.8) K/uL Eos # (Auto) 0.0 (0.0-0.7) K/uL Baso # (Auto) 0.0 (0.0-0.1) K/uL Nucleated RBC % 0.0 /100WBC Nucleated RBCs # 0 K/uL Sodium 138 (136-145) mmol/L Potassium 4.1 (3.5-5.1) mmol/L Chloride 104 (98-107) mmol/L Carbon Dioxide 24.0 (21.0-32.0) mmol/L BUN 25 H (7.0-18.0) mg/dL Creatinine 1.6 H (0.6-1.0) mg/dL Est Cr Clr Drug Dosing 26.10 mL/min Estimated GFR (MDRD) 32.2 ml/min Glucose 122 H (74-106) mg/dL Calcium 8.5 (8.5-10.1) mg/dL Med Orders - Current: Current Medications Famotidine (Pepcid) 20 mg PO BID [facility] Last Admin: 09/29/19 09:33 Dose: 20 mg Furosemide (Lasix) 40 mg PO BEDTIME [facility] Last Admin: 09/28/19 21:17 Dose: 40 mg Furosemide (Lasix) 10 mg PO DAILY [facility] Last Admin: 09/29/19 09:32 Dose: 10 mg HCTZ/Losartan Potassium (Hyzaar 50-12.5 Mg) 1 tab PO DAILY [facility] Last Admin: 09/29/19 09:33 Dose: 1 tab Ketorolac Tromethamine (Toradol) 30 mg IVPUSH Q6H PRN PRN Reason: Pain (severe 7-10) Stop: 10/03/19 13:13 Morphine Sulfate (Morphine) 4 mg IVPUSH Q2H PRN PRN Reason: Pain (severe 7-10) Ondansetron HCl (Zofran) 4 mg IVPUSH Q6H PRN PRN Reason: Nausea/Vomiting Oxycodone/Acetaminophen (Percocet 325-5 Mg) 1 tab PO Q4H PRN PRN Reason: Pain (moderate 4-6) Last Admin: 09/29/19 11:35 Dose: 1 tab Oxycodone/Acetaminophen (Percocet 325-5 Mg) 2 tab PO Q4H PRN PRN Reason: Pain (moderate 4-6) Levocetirizine Dihydrochloride [ Xyzal] 5 Mg 1 each PO BEDTIME [facility]IS M Promethazine HCl (Phenergan) 12.5 mg IM ONETIME PRN PRN Reason: Nausea Promethazine HCl (Phenergan) 25 mg IM Q6H PRN PRN Reason: Nausea/Vomiting Sodium Chloride (Saline Flush) 10 ml FLUSH ASDIRECTED PRN PRN Reason: Keep Vein Open Sodium Chloride (Saline Flush) 2.5 ml FLUSH ASDIRECTED PRN PRN Reason: Keep Vein Open Sodium Chloride (Normal Saline) 10 ml IV ASDIRECTED PRN PRN Reason: IV Use Trazodone HCl (Trazodone) 100 mg PO BEDTIME [facility] Last Admin: 09/28/19 21:59 Dose: 100 mg Discontinued Medications Cefazolin Sodium/Dextrose (Ancef) Confirm Administered Dose 2 gm IV .STK-MED ONE Stop: 09/28/19 10:11 Dexamethasone (Dexamethasone) Confirm Administered Dose 20 mg .ROUTE .STK-MED ONE Stop: 09/28/19 11:26 Divalproex Sodium (Depakote) 500 mg PO ONETIME ONE Stop: 09/28/19 21:16 Last Admin: 09/28/19 21:18 Dose: 500 mg Ephedrine Sulfate (Ephedrine Sulfate) Confirm Administered Dose 50 mg .ROUTE .STK-MED ONE Stop: 09/28/19 10:59 Fentanyl (Sublimaze) Confirm Administered Dose 100 mcg .ROUTE .STK-MED ONE Stop: 09/28/19 09:42 Fentanyl (Sublimaze) 50 - 100 mcg IVPUSH Q5M PRN PRN Reason: Pain Stop: 09/28/19 13:42 Glycopyrrolate (Robinul) Confirm Administered Dose 0.4 mg .ROUTE .STK-MED ONE Stop: 09/28/19 12:18 Hydromorphone HCl (Dilaudid) Confirm Administered Dose 2 mg .ROUTE .STK-MED ONE Stop: 09/28/19 11:18 Cefazolin Sodium/Dextrose 2 gm (/ Premix) 50 mls @ 100 mls/hr IV ONETIME ONE Stop: 09/27/19 10:09 Lactated Ringer's (Ringers, Lactated) 1,000 mls @ 100 mls/hr IV ASDIRECTED [facility] Last Admin: 09/28/19 10:20 Dose: 100 mls/hr Ketorolac Tromethamine (Toradol) Confirm Administered Dose 30 mg .ROUTE .STK- MED ONE Stop: 09/28/19 12:50 Ketorolac Tromethamine (Toradol) 30 mg IVPUSH ONETIME ONE Stop: 09/28/19 13:14 Last Admin: 09/28/19 19:52 Dose: Not Given Lidocaine (Xylocaine-Mpf 2%) Confirm Administered Dose 5 ml .ROUTE .STK-MED ONE Stop: 09/28/19 09:41 Meperidine HCl (Demerol) 12.5 - 25 mg IV ONETIME PRN PRN Reason: Shivering Stop: 09/28/19 13:42 Last Admin: 09/28/19 13:39 Dose: 25 mg Metoclopramide HCl (Reglan) Confirm Administered Dose 10 mg .ROUTE .STK-MED ONE Stop: 09/28/19 11:26 Midazolam HCl (Versed 1 Mg/Ml) Confirm Administered Dose 2 mg .ROUTE .STK-MED ONE Stop: 09/28/19 09:42 Neostigmine Methylsulfate (Neostigmine) Confirm Administered Dose 5 mg .ROUTE .STK-MED ONE Stop: 09/28/19 12:18 Non-Formulary Medication (Valproic Acid) 2 tab PO BEDTIME [facility] Octyl Cyanoacrylate (Dermabond Advance) Confirm Administered Dose 1 applic .ROUTE .STK-MED ONE Stop: 09/28/19 09:39 Ondansetron HCl (Zofran) Confirm Administered Dose 8 mg .ROUTE .STK-MED ONE Stop: 09/28/19 11:07 Propofol (Diprivan 20 Ml) Confirm Administered Dose 200 mg .ROUTE .STK-MED ONE Stop: 09/28/19 09:41 Rocuronium [place] (Zemuron) Confirm Administered Dose 100 mg .ROUTE .STK-MED ONE Stop: 09/28/19 10:06 Trazodone HCl (Trazodone Hcl) 100 mg PO BEDTIME [facility] M Last Admin: 09/28/19 22:00 Dose: Not Given - Exam General: Reports: Alert, Oriented HEENT: Reports: Pupils Equal, Pupils Reactive, EOMI, Mucous Membr. Moist/[place] Neck: Reports: Supple Lungs: Reports: Clear to Auscultation, Normal Respiratory Effort Cardiovascular: Reports: Regular Rate, Regular Rhythm GI/Abdominal Exam: Normal Bowel Sounds, Soft, Non-Tender, No Organomegaly, No Distention, No Abnormal Bruit, No Mass, Pelvis Stable (Female) Exam: Normal External Exam, Normal Speculum Exam, Normal Bimanual Exam Rectal (Female) Exam: Normal Exam, Normal Rectal Tone Back Exam: Reports: Normal Inspection, Full Range of Motion Extremities: Normal Inspection, Normal Range of Motion, Non-Tender, No Pedal Edema, Normal Capillary Refill Skin: Reports: Warm, Dry, Intact Wound/Incisions: Reports: Healing Well Neurological: Reports: No New Focal Deficit Psy/Mental Status: Reports: Alert, Normal Affect, Normal Mood
--- NOTE | 2019-09-29 13:16 | OR ---
SURGEON: Raffaele Estevez MD DATE OF PROCEDURE: PREOPERATIVE DIAGNOSIS: Vaginal vault prolapse. POSTOPERATIVE DIAGNOSIS: Vaginal vault prolapse. OPERATIONS PERFORMED: Attempted to repair the vaginal vault prolapse laparoscopically that was unsuccessful. We proceeded to an open route for vaginal vault suspension using absorbable material. PRIMARY SURGEON: Raffaele Estevez MD. SECRETARY TO BOARD OF COMMISSIONERS: OR tech. ANESTHESIA: General endotracheal intubation. Anne Emerson and Dr. Hogan. ESTIMATED BLOOD LOSS: Less than 100 mL. COMPLICATIONS: None. FINDING: Vaginal vault prolapse. INDICATIONS FOR SURGERY: [place] referred to the admit note. PROCEDURE IN DETAIL: The patient brought to the OR, properly identified, and after adequate level of anesthesia, the patient was placed in lithotomy position with an access to the abdomen and to the vagina. Campuzano catheter was placed in the bladder, and we started by making a laparoscopic incision beneath the umbilicus. The Veress needle was placed in the peritoneal cavity and that cavity insufflated to 2.5 L of carbon dioxide. A skin incision large to accommodate 5 mm trocars and 5 mm scope through it. Inspection of the pelvic organ shows some adhesion. I proceeded with inserting three trocars 1, 10, 11 in the left iliac fossa and two 5, one suprapubically and one in the right iliac fossa. Using Harmonic scalpel, the adhesion was lysed completely. However, it became clear that we cannot proceed with the procedure laparoscopically because it was unable to visualize the promontory of the pelvis adequately to do dissection to anchor the prosthesis for the prolapse of the vagina, so we abandoned laparoscopic route, and the patient was already consented for possible open procedures, and I did a Pfannenstiel skin incision. Solo's fascia and rectus fascia were opened in direction of the incision and the peritoneal cavity was entered. The intestine was retracted away from the operative field and then the peritoneum on top of the promontory of the pelvis dissection was done until we felt the spinous ligament on top of the vertebra. Then, at this time, I proceeded to do Moschcowitz culdoplasty using 2-0 silk in the usual manner to obliterate the cul- de-sac and to prevent enterocele, and then after that, the vaginal apex was identified with the aid of the vaginal dilator and then the vaginal apex was clamped with the Allis clamps and after preparing the allograft prosthesis. One end of the allograft was anchored to the top of the vagina using 2-0 silk, three interrupted sutures applied. Then, the other end of the allograft was anchored to the spinous ligament just beneath the promontory of the pelvis in an area previously dissected and identified using 2-0 silk, three interrupted sutures in place. Once was that anchored and there was no tension on the graft, then we proceeded to close the peritoneum on top of the graft so that the graft was retroperitoneal. Once we did that, the instrument and hardware were retrieved from the abdomen and the abdomen was closed in layers. First, the peritoneum with 3-0 Vicryl and then the fascia with #1 PDS single strand continuous and then the Solo's fascia with 3-0 Vicryl and the skin with 3-0 Vicryl on a Vernon needle in a subcuticular fashion and Dermabond. Instrument and sponge count was correct. The patient tolerated the procedure well, went to recovery room in stable general condition. SOPHIA ANDREA /[id number]
== END 2019-09-29 18:30 | disposition home or self-care (01) ==
LOC: MW.SDS 09:14 → MW.MS 13:31 → MW.SDS 09-29 18:30
PROVIDERS: ATTEND Obstetrics & Gynecology
DX: N81.10 Cystocele, unspecified (principal); E78.5 Hyperlipidemia, unspecified; I12.9 Hypertensive chronic kidney disease with stage 1 through stage 4 chronic kidney disease, or unspecified chronic kidney disease; N18.9 Chronic kidney disease, unspecified; M10.9 Gout, unspecified; Z98.51 Tubal ligation status; Z79.899 Other long term (current) drug therapy; Z88.1 Allergy status to other antibiotic agents; Z88.0 Allergy status to penicillin; Z88.2 Allergy status to sulfonamides
CPT/HCPCS: 36415; 57282; 80048; 85025; 85027; 86850; 86900; 86901; A9270; J0690; J1100; J1170; J1885; J2001; J2175; J2250; J2405; J2704; J2765; J3010; J3490; J7120; Q4116